=== PATIENT | female | born 1950 | race Caucasian/White ===

== ENCOUNTER → 2017-11-11 | Outpatient (CLI) | payer MEDICARE, OTHER ==
--- NOTE | 2017-11-11 12:51 | MRI ---
EXAM DESCRIPTION: MRI left knee CLINICAL HISTORY: Left knee pain and swelling COMPARISON: None. TECHNIQUE: Multiplanar, multisequence MR images of the left knee FINDINGS: Tear of the free edge mid body lateral meniscus with focal fraying and blunting coronal PD image 19. Lateral femorotibial chondrosis with full-thickness chondral defect of the weightbearing femoral condyle about 7 mm in size. Full-thickness fissure of the adjacent tibial cartilage. No subchondral marrow abnormality No medial meniscal tear. Medial femorotibial chondral thinning diffusely without subchondral marrow edema Minimal lateral patellar positioning relative to the trochlea by about 4 mm with mild lateral patellar tilt. TT TG interval estimated at 13 mm. Grade 4 chondrosis over the lower half of the lateral facet patella with multifocal tiny subchondral cysts and mild edema. Femoral trochlear cartilage intact. Patellar and quadriceps tendons are intact ACL, PCL, MCL and fibular collateral ligaments are intact Biceps femoris, popliteus and iliotibial band tendons are normal. Normal tendons of the posterior medial knee Prepatellar subcutaneous soft tissue edema and swelling mostly overlying the patella and lateral retinaculum. Edema in the infrapatellar fat superior lateral. Minimal joint fluid without focal synovitis or intra-articular body IMPRESSION: Radial free edge tear mid body lateral meniscus. Chondrosis lateral femorotibial with a 7 mm full-thickness chondral defect of the femoral condyle and a full-thickness subjacent tibial chondral fissure Grade 4 chondrosis involving the lower half of the lateral patella with subchondral cystic change and edema Electronically signed by: Yahir Boswell MD 11/11/2017 12:50 PM CDT
== END ==
LOC: MRI 10:04
PROVIDERS: ATTEND Family Medicine
DX: S83.281A Other tear of lateral meniscus, current injury, right knee, initial encounter (principal); M94.8X6 Other specified disorders of cartilage, lower leg

== ENCOUNTER → 2017-11-17 | Outpatient (CLI) | payer MEDICARE, OTHER ==
--- NOTE | 2017-11-17 11:11 | RAD ---
EXAM DESCRIPTION: Pelvis CLINICAL HISTORY: 67 years Female, PAIN IN LEFT HIP COMPARISON: None. FINDINGS: Single AP view the pelvis shows no displaced left hip or other pelvic fracture. Hip joint spaces are fairly well-maintained. The sacroiliac joints are unremarkable. No soft tissue abnormality. IMPRESSION: Negative exam. No apparent pelvic abnormality to explain left hip pain. Electronically signed by: Wesley Martinez MD 11/17/2017 11:10 AM CDT
== END ==
LOC: RAD 10:06
PROVIDERS: ATTEND Orthopaedic Surgery
DX: M25.552 Pain in left hip (principal)

== ENCOUNTER → 2018-04-20 | Outpatient (CLI) | payer MEDICARE, OTHER | LOC: GMAM 17:29 | PROVIDERS: ATTEND Family Medicine | DX: L29.8 Other pruritus (principal); L20.89 Other atopic dermatitis; R53.83 Other fatigue ==

== ENCOUNTER 2019-02-19 00:43 | Observation (INO) | payer MEDICARE, OTHER ==
--- NOTE | 2019-02-19 01:04 | ED.PDOC ---
History of Present Illness - General Chief Complaint: Chest Pain/RI Stated Complaint: chest pain Time Seen by Provider: 02/19/19 00:55 - History of Present Illness Initial Comments: c/o having 7/10 sharp /burning epigastric and substernal chest pain started 3 hours back radiating to the back , no sob or wheezing. Pt says that it is a similar pain when she was diagnosed with CAD and stent was placed Timing/Duration: 1-3 hours Location: substernal Activities at Onset: none Improving Factors: nothing Worsening Factors: nothing Allergies/Adverse Reactions: Allergies NO KNOWN ALLERGY Allergy (Verified 02/19/19 00:50) Home Medications: Ambulatory Orders Atorvastatin Calcium 40 mg PO BEDTIME 02/19/19 Januvia 100 mg PO DAILY 02/19/19 RX: Insulin Glargine [Basaglar Kwikpen] 12 units SC BEDTIME 02/19/19 RX: Lisinopril [Prinivil] 10 mg PO BID 02/19/19 RX: Paroxetine HCl 10 mg PO DAILY 02/19/19 RX: Semaglutide [Ozempic] 2 mg SC WKLY 02/19/19 Review of Systems - Review of Systems Constitutional: States: no symptoms reported EENTM: States: no symptoms reported Respiratory: States: no symptoms reported Cardiology: States: see HPI Gastrointestinal/Abdominal: States: no symptoms reported Genitourinary: States: no symptoms reported Musculoskeletal: States: no symptoms reported Skin: States: no symptoms reported Neurological: States: no symptoms reported Endocrine: States: no symptoms reported Hematologic/Lymphatic: States: no symptoms reported Past Medical History (General) - Patient Medical History Hx Cardiac Disorders: Yes Hx Congestive Heart Failure: No Hx Hypertension: Yes Hx Diabetes: Yes Surgical History: Hysterectomy - Vaccination History Hx Influenza Vaccination: No Hx Pneumococcal Vaccination: No - Triage Comment ED Triage Comment: Pain to epiastric area, radiates to back. Onset around 8-9 pm. Also states has heartburn Family Medical History - Family History Father Family History: Unknown Mother Living Status: Age at (years of age): 51 Cause of : type 1 DM Hx Cardiac Disease: Yes Physical Exam - Physical Exam General Appearance: Alert, Comfortable Eyes, Ears, Nose, Throat Exam: normal ENT inspection Neck: non-tender, full range of motion, supple, normal inspection Respiratory: chest non-tender, lungs clear, normal breath sounds, no respiratory distress, no accessory muscle use Cardiovascular/Chest: regular rate, rhythm, no edema, no gallop, no JVD, no murmur Gastrointestinal/Abdominal: soft, no organomegaly Extremity: normal range of motion, non-tender, normal inspection, no pedal edema Neurologic: no motor/sensory deficits, alert, normal mood/affect, oriented x 3 Skin Exam: normal color Lymphatic: no adenopathy Progress - Progress Progress: 02/19/19 04:14 Case d/w Norman agreed to admit the pt Heart Score : 5 02/19/19 04:18 - Results/Orders Results/Orders: 02/19/19 00:50 Telemetry .ONCE EKG Assessment ONCE EKG Stat Pulse Ox Stat Pulse Oximetry Assessment DAILY Laboratory Results WBC 10.1 K/mm3 (4.8-10.8) 02/19/19 01:02 RBC 4.25 M/mm3 (4.20-5.40) 02/19/19 01:02 Hgb 13.1 gm/dL (12.0-16.0) 02/19/19 01:02 Hct 38.6 % (36.0-47.0) 02/19/19 01:02 MCV 90.7 fl (81.0-99.0) 02/19/19 01:02 MCH 30.7 pg (27.0-31.0) 02/19/19 01:02 MCHC 33.9 g/dL (33.0-37.0) 02/19/19 01:02 RDW 13.2 % (11.5-14.5) 02/19/19 01:02 Plt Count 316 K/mm3 (130-400) 02/19/19 01:02 MPV 7.7 fl (7.40-10.4) 02/19/19 01:02 Absolute Neuts (auto) 6.00 K/uL (1.8-6.8) 02/19/19 01:02 Absolute Lymphs (auto) 3.00 K/uL (1.0-3.4) 02/19/19 01:02 Absolute Monos (auto) 0.80 K/uL (0.2-0.8) 02/19/19 01:02 Absolute Eos (auto) 0.20 K/uL (0.0-0.4) 02/19/19 01:02 Absolute Basos (auto) 0.00 K/uL (0.0-0.1) 02/19/19 01:02 Neutrophils % 59.9 % (42.0-78.0) 02/19/19 01:02 Lymphocytes % 29.6 % (20.0-50.0) 02/19/19 01:02 Monocytes % 7.8 % (2.0-9.0) 02/19/19 01:02 Eosinophils % 2.2 % (1.0-5.0) 02/19/19 01:02 Basophils % 0.5 % (0.0-2.0) 02/19/19 01:02 PT 9.2 SECONDS (9.0-10.9) 02/19/19 01:02 INR 0.92 (0.9-1.15) 02/19/19 01:02 PTT (SP) 24.5 SECONDS (21.8-31.6) 02/19/19 01:02 D-Dimer, Quantitative 0.59 mg/L FEU (0-0.49) H* 02/19/19 01:02 Sodium 140 mmol/L (135-145) 02/19/19 01:02 Potassium 3.5 mmol/L (3.6-5.0) L 02/19/19 01:02 Chloride 100 mmol/L (101-111) L 02/19/19 01:02 Carbon Dioxide 32 mmol/L (21-31) H 02/19/19 01:02 Anion Gap 11.5 (12-18) L 02/19/19 01:02 BUN 16 mg/dL (7-18) 02/19/19 01:02 Creatinine 0.92 mg/dL (0.6-1.3) 02/19/19 01:02 BUN/Creatinine Ratio 17.4 (10-20) 02/19/19 01:02 Random Glucose 225 mg/dL (70-105) H 02/19/19 01:02 Serum Osmolality 287.6 mOsm/L (275-295) 02/19/19 01:02 Calcium 9.8 mg/dL (8.4-10.2) 02/19/19 01:02 Magnesium 1.9 mg/dL (1.8-2.5) 02/19/19 01:02 Total Bilirubin 0.4 mg/dL (0.2-1.0) 02/19/19 01:02 Direct Bilirubin < 0.1 mg/dL (0-0.2) 02/19/19 01:02 Indirect Bilirubin 0.3 mg/dL (0.2-0.8) 02/19/19 01:02 AST 19 IU/L (10-42) 02/19/19 01:02 ALT 31 IU/L (10-60) 02/19/19 01:02 Alkaline Phosphatase 83 IU/L (42-121) 02/19/19 01:02 Creatine Kinase 56 IU/L (26-140) 02/19/19 01:02 CK-MB (CK-2) 1.0 ng/mL (0.0-4.4) 02/19/19 01:02 CK-MB (CK-2) % Not Reportable 02/19/19 01:02 Troponin I < 0.02 ng/mL (0.01-0.05) 02/19/19 03:19 B-Natriuretic Peptide < 5.0 pg/ml (0-100) 02/19/19 01:02 Serum Total Protein 7.8 gm/dL (6.4-8.2) 02/19/19 01:02 Albumin 4.3 g/dl (3.2-5.5) 02/19/19 01:02 - EKG/XRAY/CT EKG: Sinus, no ST T wave changes Departure - Departure Clinical Impression: Chest pain Disposition: Admit Patient Condition: Good Home Medications: Ambulatory Orders Atorvastatin Calcium 40 mg PO BEDTIME 02/19/19 Januvia 100 mg PO DAILY 02/19/19 RX: Insulin Glargine [Basaglar Kwikpen] 12 units SC BEDTIME 02/19/19 RX: Lisinopril [Prinivil] 10 mg PO BID 02/19/19 RX: Paroxetine HCl 10 mg PO DAILY 02/19/19 RX: Semaglutide [Ozempic] 2 mg SC WKLY 02/19/19
--- NOTE | 2019-02-19 01:15 | RAD ---
CLINICAL HISTORY: chest pain COMPARISON: None. 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 Lungs are clear without consolidation, atelectasis, mass or edema. There is no pleural effusion. There is no pneumothorax. There are no acute osseous findings. IMPRESSION: Clear lungs. Electronically signed by: Jw Elder MD 02/19/2019 1:13 AM CORNER BRACE BLOCK MACHINE OPERATOR
[2019-02-19] MEDS ORDERED: ALUM & MAG HYDROX-SIMETHICONE 30 ML, LIDOCAINE VISCOUS 2% 15 ML PO ONE ×2 (02:16)
[2019-02-19] MEDS ORDERED: LIDOCAINE HCL 2% (MOUTH-THROAT) 15 ML UD ONE (02:17)
[2019-02-19] MEDS ORDERED: ALUM & MAG HYDROX-SIMETHICONE 30 ML UD ONE (02:17)
[2019-02-19] MEDS ORDERED: FAMOTIDINE IV PREMIX 20 MG in PREMIX BAG 1 BAG IVPB ONE (03:16)
[2019-02-19] MEDS ORDERED: DICYCLOMINE HCL INJ 20 MG/2 ML AMP IM ONE (03:17)
[2019-02-19] MEDS ORDERED: FAMOTIDINE IV PREMIX 50 ML IVPB ONE (03:18)
[2019-02-19] MEDS ORDERED: PANTOPRAZOLE SODIUM IV 40 MG VIAL ONE (04:09)
[2019-02-19] MEDS ORDERED: PANTOPRAZOLE SODIUM IV 40 MG VIAL IV ONE (04:09)
[2019-02-19] MEDS ORDERED: SODIUM CHLORIDE 0.9% (FLUSH) 10 ML SYG IV PRN (05:06)
[2019-02-19] MEDS ORDERED: NITROGLYCERIN 0.4 MG 25 EA TAB SL PRN (05:06)
[2019-02-19] MEDS ORDERED: ASPIRIN (CHEWABLE) 81 MG TAB PO ONE (05:06)
[2019-02-19] MEDS ORDERED: MORPHINE SULFATE INJ 10 MG/ML VIAL IV PRN (05:06)
[2019-02-19] MEDS ORDERED: ACETAMINOPHEN 325 MG TAB PO PRN (05:06)
[2019-02-19] MEDS ORDERED: DEXTROSE 50% 25 GM/50 ML SYG IV PRN (05:11)
[2019-02-19] MEDS ORDERED: GLUCAGON INJ 1 MG VIAL SUBCU PRN (05:11)
[2019-02-19] MEDS ORDERED: KCL 20 MEQ/NS 1,000 ML IVS PRN (05:20)
[2019-02-19] MEDS ORDERED: IV SET AND CAP CHANGE INJ INJ SCH (05:30)
[2019-02-19] MEDS ORDERED: ENOXAPARIN SODIUM 80 MG/0.8 ML SYG SUBCU ONE (05:35)
--- NOTE | 2019-02-19 07:28 | CT ---
EXAM: CT Angiography Chest With Intravenous Contrast CLINICAL HISTORY: cp , elevated ddimer TECHNIQUE: Axial computed tomographic angiography images of the chest with intravenous contrast. Sagittal and coronal reformatted images were created and reviewed. This CT exam was performed using one or more of the following dose reduction techniques: automated exposure control, adjustment of the mA and/or kV according to patient size, and/or use of iterative reconstruction technique. MIP reconstructed images were created and reviewed. COMPARISON: No relevant prior studies available. FINDINGS: Limitations: None. Pulmonary arteries: Unremarkable. No pulmonary embolism. Aorta: No acute findings. No thoracic aortic aneurysm. Lungs: There is a slight mosaic pattern of pulmonary perfusion represent areas of air trapping. There are foci of mild vascular crowding/atelectasis. There is a 9 x 11 mm noncalcified pulmonary nodule in the left lower lobe slightly posterior and inferior to the left atrium (81/118 and 161/235). Pleural space: Unremarkable. No significant effusion. No pneumothorax. Heart: Unremarkable. No cardiomegaly. No significant pericardial effusion. No evidence of RV dysfunction. Bones/joints: No acute fracture. No dislocation. Soft tissues: Unremarkable. Lymph nodes: Unremarkable. No enlarged lymph nodes. Gallbladder and bile ducts: Large lamellated gallstone present. IMPRESSION: 1. No pulmonary embolus noted. 2. Nonspecific left lower lobe pulmonary nodule. For low-risk or high-risk patients consider a follow-up chest CT at 3 months. If unchanged consider an additional follow-up CT at 18-24 months. Alternatively (or additionally) PET/CT or tissue sampling could be performed. 3. Cholelithiasis. Electronically signed by: Whitney Tate MD 02/19/2019 7:27 AM CHAIN MAKER HAND
[2019-02-19] MEDS: INSULIN LISPRO 100 UNITS/ML PEN SUBCU SCH ×2 (07:30→11:26)
[2019-02-19] MEDS ORDERED: SODIUM CHLORIDE 0.9% (FLUSH) 10 ML SYG IV SCH (09:00)
[2019-02-19] MEDS ORDERED: NITROGLYCERIN 0.4 MG/HR PATCH TOP SCH (09:00)
[2019-02-19 10:39] VITALS: BP 115/70; TEMP 98; O2SAT 97
--- NOTE | 2019-02-19 11:45 | CT ---
EXAM DESCRIPTION: Abdoment/Pelvis w/o Contrast CLINICAL HISTORY: 68 years Female, epigastric pain, elevated lipase TECHNIQUE: This exam was performed according to our departmental dose-optimization program, which includes automated exposure control, adjustment of the mA and/or kV according to patient size and/or use of iterative reconstruction technique. COMPARISON: Concurrent CT chest FINDINGS: Evaluation limited by lack of intravenous contrast. Bibasilar volume loss. No focal consolidation. Redemonstrated left lower lobe pulmonary nodule measuring 9 mm series 2 image 15 (follow-up recommendations are unchanged from the concurrent chest CT). Steatosis. Cholelithiasis with gallbladder wall thickening and trace pericholecystic fluid. Focal fatty sparing adjacent the gallbladder fossa. The contours of the liver, spleen and adrenal glands are unremarkable normal pancreas. No peripancreatic fat stranding or fluid collection identified. Normal renal contours. No hydronephrosis. No urothelial lesion identified. The bladder is decompressed. Scattered colonic diverticula without focal inflammatory change. No evidence of bowel obstruction. No findings to suggest appendicitis. Normal appendix. Medication injection site over the ventral left lower quadrant. No adenopathy. No focal fluid collection. No free air. Normal caliber abdominal aorta. No acute or suspicious osseous abnormality. Scattered degenerative changes present. IMPRESSION: 1. Findings concerning for acute cholecystitis. 2. No peripancreatic fat stranding or fluid collection identified. 3. Redemonstrated left lower lobe pulmonary nodule, follow-up recommendations are unchanged from the concurrent chest CT. Electronically signed by: Cosmo Gaviria MD 02/19/2019 11:43 AM REMARKETING MANAGER
--- NOTE | 2019-02-19 13:42 | CONS ---
DATE OF CONSULTATION: 02/19/19 HISTORY OF PRESENT ILLNESS: The patient is a 68-year-old female who presented to the Emergency Room with chest pain, rule out myocardial infarction. She also underwent a CTA to rule out pulmonary embolism. She has a history of coronary artery disease and stent placement in the distant past, approximately 2011. She denies shortness of breath. Initially she also stated that even though the pain was somewhat like what she had before, it did radiate straight through to the back. She did not associate it with any specific meal or injury. PAST MEDICAL HISTORY: 1. Childbirth times 3. 2. Tubal ligation. 3. Hysterectomy. 4. Stent placement. MEDICATIONS: 1. Atorvastatin. 2. Glargine insulin. 3. Januvia. 4. Lisinopril. 5. Paroxetine. ALLERGIES: NO KNOWN DRUG ALLERGIES. FAMILY HISTORY: Negative for anesthesia complication. SOCIAL HISTORY: The patient is and lives at home with her . She smoked until she was 32. She does not drink alcohol of any significant amount. PHYSICAL EXAMINATION: GENERAL: The patient is awake, alert, cooperative, in no acute distress. HEENT: Sclerae nonicteric. Mucous membranes moist. NECK: Without adenopathy. BACK: Without CVA tenderness. CHEST: Equal breath sounds bilaterally. HEART: Regular rhythm. ABDOMEN: Soft. There is minimal tenderness in the epigastrium without guarding or mass. There is a well-healed Pfannenstiel incision. PELVIC/RECTAL: Deferred. EXTREMITIES: Without cyanosis, clubbing or edema. LABORATORY: Normal white count, normal hemoglobin of 13.1. Neutrophils 59%. Platelet count 316,000. QT was normal at 9.2 with INR 0.92. D-dimer was slightly elevated at 45.9. Potassium 3.5. BUN 16, creatinine 0.92. Liver functions all within normal limits. Lipase slightly elevated at 65, but it has now normalized to 28. CTA and CT of the abdomen revealed no pathology in the chest. It does reveal gallstones and there is some question of gallbladder wall thickening with pericholecystic inflammatory process. ASSESSMENT: 1. Cholelithiasis. 2. Cholecystitis. 3. Diabetes. 4. She has ruled out for chest pathology. PLAN: The risks, benefits and alternatives to laparoscopic cholecystectomy were discussed with the patient and her . Their questions were answered. They wished to proceed. Since she is an observation patient, she will be discharged home this afternoon, made NPO at midnight and brought in tomorrow in the late morning for elective cholecystectomy. She is to not eat any fatty meals until after her surgery. #[id number] [facility]
--- NOTE | 2019-02-19 14:27 | SSS ---
SUPERVISING PHYSICIAN: Avel Lopez MD CHIEF COMPLAINT: Chest pain, epigastric discomfort. HISTORY OF PRESENT ILLNESS: Ms. Cazares is a 68-year-old female patient who presented to the Emergency Department earlier this morning with complaints of chest pain. She noted that she had had some pain that started shortly after supper last night that was radiating from her epigastric region to her back. She described it as 8/10. She does have a history of previous stent placement with coronary artery disease in 2011. She denied any actual shortness of breath, nausea or vomiting. Her initial labs showed her troponins were negative at 0.02. EKG showed a normal sinus rhythm without any ST changes. Given her past medical history, the Emergency Room physician requested the patient be placed in observation for chest pain rule out. On further workup, further laboratory studies were completed with an elevated lipase at 63. She also had a D-dimer that was elevated at 0.59. Liver functions were all within normal limits. CTA of the chest was completed which was without any acute findings for pulmonary embolism, but did show cholelithiasis. Given her elevated lipase, this was followed up with a CT of the abdomen and pelvis with contrast and per radiologic interpretation, there were findings concerning for acute cholecystitis. She had a normal white count. She was afebrile. She was no longer having any chest pains or any other pains after admission. It was felt that the origin of her pain was due to the acute cholecystitis. At that point, Dr. Garland, general surgeon, was consulted for further evaluation. She was placed in observation in stable condition. PAST MEDICAL HISTORY: 1. Coronary artery disease, followed by Dr. Martini with stent placement in 2011. 2. Hypertension. 3. Osteopenia. 4. Type 2 diabetes mellitus on oral and insulin therapy. 5. Anxiety. PAST SURGICAL HISTORY: 1. Hysterectomy in 1999 with BSO. HOME MEDICATIONS: 1. Paroxetine 10 mg daily. 2. Lisinopril 10 mg b.i.d. 3. Januvia 100 mg b.i.d. 4. Insulin glargine 12 units at bedtime. 5. Atorvastatin calcium 40 mg at bedtime. 6. Ozempic 2 mg weekly. ALLERGIES: NO KNOWN DRUG ALLERGIES. FAMILY HISTORY: Her father had hypertension, kidney disease. Mother at age 51 secondary to complications of insulin dependent diabetes mellitus. 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 She is and has three children. She does have a history of smoking cigarettes, but quit in 1981. She denies any alcohol or illicit drug use. REVIEW OF SYSTEMS: CONSTITUTIONAL: Negative for any fevers, chills or general malaise. HEENT: Negative for headache, sore throats, earaches, nasal congestion, vision changes. RESPIRATORY: Negative for coughing, wheezing or shortness of breath. CARDIOVASCULAR: As noted in history of present illness, epigastric discomfort radiating to her back. GASTROINTESTINAL: Negative for nausea, vomiting, diarrhea, constipation or abdominal pain. GENITOURINARY: Negative for dysuria, hematuria, polyuria. MUSCULOSKELETAL: Negative for joint swelling or arthralgia. SKIN: Negative for lesions, rashes, moles, unexplained changes. NEUROLOGIC: Negative for ataxia, seizures, syncopal episodes, vision changes or other focal deficits. HEMATOLOGIC: Denies easy bleeding or unexplained bruising or transfusion reactions. PHYSICAL EXAMINATION: VITAL SIGNS: Temperature 98. Pulse 76. Blood pressure 115/70. Respirations 16. Saturation 97% on room air. Admission weight 81.4 kg. GENERAL: The patient was resting comfortably and appeared to be in no acute distress. She is alert. HEENT: Tympanic membranes clear bilaterally. Oropharynx is pink, moist without any lesions. NECK: Supple, nontender with full range of motion. No jugular venous distention noted. RESPIRATORY: Lungs clear to auscultation bilaterally without any rhonchi, wheezes or rales. CARDIOVASCULAR: Regular rate and rhythm without any appreciable murmurs, gallops, or rubs. ABDOMEN: Soft with some tenderness noted in the epigastric region without guarding, masses. Positive bowel sounds. EXTREMITIES: There is no edema. NEUROLOGIC: The patient is alert and oriented times three. Cranial nerves II- XII are grossly intact. LABORATORY: CBC showed normal white count, hemoglobin 13.1, no left shift, platelet count 316,000. D-dimer slightly elevated at 45.9. Electrolytes showed normal potassium, creatinine 0.92. Liver functions within normal limits. Lipase initially was elevated, but normalized after fluids and was 28 prior to discharge. RADIOLOGY: CTA of the chest to rule out pulmonary embolism was without any acute findings other than cholelithiasis. No pulmonary embolism was identified. She did have CT of the abdomen and pelvis with contrast which did reveal gallstones and some concerning findings for acute cholecystitis with some question of thickening of the pericholecystic inflammatory process. Echocardiogram was pending at time of discharge. HOSPITAL COURSE: Ms. Cazares was admitted for chest pain rule out. She was to have no acute cardiac findings. She had no return of her chest pain. She had resolution of her pain prior to admission. She was further worked up and found to have signs for acute cholecystitis but without any signs of infection. Dr. Garland was consulted and recommended the patient have a cholecystectomy laparoscopically in the morning. After discussion with the patient, it was agreed that the patient would be discharged this afternoon, kept NPO overnight and brought in in the morning for an elective cholecystectomy. She was instructed not to eat any fatty meals and remain NPO after midnight. Her EKG showed no acute changes. Her labs did show an elevated lipase, but normalized after fluids. She had no concerning symptoms and was found to be clinically stable enough to discharge to followup as noted. ADMISSION DIAGNOSIS: 1. Chest pain, rule out. 2. Type 2 diabetes mellitus on oral and insulin therapy. 3. Coronary artery disease, followed by Dr. Martini with stent placement in 2011. 4. Hypertension, controlled. 5. Osteopenia. 6. Anxiety. DISCHARGE DIAGNOSIS: 1. Cholelithiasis with acute cholecystitis. 2. Hypertension, controlled. 3. Coronary artery disease with stent placement in 2011, followed by Dr. Martini. 4. Type 2 diabetes mellitus, controlled with insulin and oral therapy. 5. Anxiety. PLAN: Ms. Cazares, after seeing Dr. Garland, is going to be discharged home to return in the morning for an elective cholecystectomy. She was instructed on diet and to be NPO at midnight. Activity as tolerated. Return to the hospital in the morning for cholecystectomy. She was told if she had any worsening symptoms after discharge to call Dr. Garland and return to the hospital for further evaluation. CONDITION ON DISCHARGE: Stable and improved. DISPOSITION: The patient was discharged home to care of family members. [facility][id number] [facility]
[2019-02-19] MEDS ORDERED: REMOVE OLD PATCH TOP SCH (21:00)
[2019-02-19] MEDS ORDERED: ENOXAPARIN SODIUM 80 MG/0.8 ML SYG SUBCU SCH (21:00)
[2019-02-20] MEDS ORDERED: ASPIRIN TABLET 325 MG TAB PO SCH (09:00)
== END 2019-02-19 14:27 | disposition home or self-care (01) ==
LOC: ER 00:43 → MS 04:33
PROVIDERS: ADMIT Nurse Practitioner Family; ATTEND Nurse Practitioner Family
DX: K80.00 Calculus of gallbladder with acute cholecystitis without obstruction (principal); I10 Essential (primary) hypertension; I25.10 Atherosclerotic heart disease of native coronary artery without angina pectoris; E11.9 Type 2 diabetes mellitus without complications; F41.9 Anxiety disorder, unspecified; R07.2 Precordial pain; M85.88 Other specified disorders of bone density and structure, other site; R91.1 Solitary pulmonary nodule; I34.0 Nonrheumatic mitral (valve) insufficiency; I36.1 Nonrheumatic tricuspid (valve) insufficiency; Z79.4 Long term (current) use of insulin; Z79.899 Other long term (current) drug therapy; Z95.5 Presence of coronary angioplasty implant and graft; Z87.891 Personal history of nicotine dependence; Z82.49 Family history of ischemic heart disease and other diseases of the circulatory system; Z83.3 Family history of diabetes mellitus; Z84.1 Family history of disorders of kidney and ureter
CPT/HCPCS: 96365; 96375; 96372; J0500; J3490; J1650; J3480; J1815; 85379; 82948 ×2; 36415 ×2; 82550; 80048; 82553; 85025; 85730; 85610; 84484 ×3; 82150; 80076; 83690 ×2; 83880; 36416 ×2; 71045; 71275; 74176; 94760 ×2; 99285; 93306; 93005 ×2; G0378

== ENCOUNTER 2019-02-20 05:34 | Day surgery (SDC) | payer MEDICARE, OTHER ==
[2019-02-20] MEDS ORDERED: PROPOFOL 200 MG/20 ML VIAL IV ONE (10:00)
[2019-02-20] MEDS ORDERED: raNITIdine HCL INJ 25 MG/ML VIAL IV ONE (10:00)
[2019-02-20] MEDS ORDERED: DEXAMETHASONE INJ 10 MG/ML VIAL IV ONE (10:00)
[2019-02-20] MEDS ORDERED: KETOROLAC TROMETHAMINE INJ 30 MG/ML VIAL IV ONE (10:00)
[2019-02-20] MEDS ORDERED: SODIUM CHL 0.9% 100ML MINI-BAG 100 ML IVPB ONE (12:29)
[2019-02-20] MEDS ORDERED: LACTATED RINGERS 1,000 ML ONE (12:29)
[2019-02-20] MEDS ORDERED: ceFAZolin SODIUM 1 GM VIAL ONE (12:30)
[2019-02-20] MEDS ORDERED: fentaNYL CITRATE INJ 50 MCG/ML AMP ONE (12:57)
[2019-02-20] MEDS ORDERED: ROCURONIUM BROMIDE 10 MG/ML VIAL ONE (12:57)
[2019-02-20] MEDS ORDERED: MIDAZOLAM INJ 2 MG/2 ML VIAL ONE (12:58)
[2019-02-20] MEDS ORDERED: BUPIVACAINE 0.25% W/EPI 50 ML VIAL INJ ONE (13:05)
[2019-02-20] MEDS ORDERED: HEPARIN SODIUM (PORCINE) 10,000 UNITS/ML VIAL ONE (13:05)
[2019-02-20] MEDS ORDERED: SUGAMMADEX SODIUM 200 MG/2 ML VIAL IV ONE (14:08)
[2019-02-20] MEDS ORDERED: HYDROmorphone HCL INJ 2 MG/ML VIAL ONE (14:08)
[2019-02-20] MEDS ORDERED: LACTATED RINGERS 1,000 ML IVS ONE ×2 (15:54)
[2019-02-20 16:53] VITALS: BP 159/81; TEMP 96.8; O2SAT 96
--- NOTE | 2019-02-20 20:59 | OP ---
DATE OF PROCEDURE: 02/20/19 PREOPERATIVE DIAGNOSIS: 1. Cholelithiasis. 2. Cholecystitis. POSTOPERATIVE DIAGNOSIS: 1. Cholelithiasis, pending pathology report. 2. Cholecystitis, pending pathology report. SURGICAL PROCEDURE: 1. Laparoscopic cholecystectomy with intraoperative cholangiography using fluoroscopy. SURGEON: Sadi Garland M.D. DIE CAST TECHNICIAN: None. ANESTHESIA: Local infiltration with 0.25% Marcaine equal epinephrine and general endotracheal anesthesia. INDICATION FOR SURGERY: The patient is a 68 year-old female who presented to the Emergency Room the night before last after eating a meal with what she described as chest pain that radiated to the back. She was admitted for observation for rule out and she did, in fact, rule out, however a CTA of the chest to rule out pulmonary embolism revealed gallstones and a CT of the abdomen was consistent with some inflammatory process around the gallbladder. She did not meet criteria. She was afebrile with a normal white count, so she was discharged home yesterday afternoon and was brought in today for laparoscopic cholecystectomy. FINDINGS AT TIME OF PROCEDURE: The gallbladder wall was thickened. There was a large stone with some inflammatory changes with adhesions to both the duodenum and the omentum. The cystic duct was quite short and intraoperative cholangiography revealed no dilation of the bile duct, free flow into the duodenum and all three branches of the hepatic duct were identified and no leak or stricture was identified. No filling defect was identified. DESCRIPTION OF PROCEDURE: After adequate general endotracheal anesthesia was obtained, the patient was prepped and draped in the usual sterile manner. She had received IV Ancef. Surgical time-out was taken. The infraumbilical area was infiltrated with local anesthesia. A curvilinear incision was made and carried down through the subcutaneous tissue to the midline fascia using blunt dissection. Traction sutures were placed on either side of the midline. A small incision was made in the midline fascia and then with some significant difficulty due to some adhesions, eventually the peritoneum was opened under direct vision and the port was introduced. CO2 was then insufflated until a pressure of 12 mmHg was reached and the abdomen was tympanitic in all four quadrants. When this was done, the laparoscope was introduced in the pelvis. There were adhesions in the pelvis especially on the right side and there were adhesions to the gallbladder, so at this point the patient was placed in reverse Trendelenburg position and turned to the left side. The upper abdominal ports were placed under direct vision. The gallbladder was grasped, and using blunt dissection the adhesions were taken down. The gallbladder was then grasped, retracted anteriorly and laterally. The neck of the gallbladder was identified after gentle blunt dissection of some adhesions. It was then retracted laterally. Eventually the cystic duct was identified and seemed to be quite short. It was clipped proximally. A small incision was made in the cystic duct. The cholangiogram catheter was introduced through a separate stab wound on the right upper quadrant, introduced into the cystic duct and clipped in place. Cholangiograms were taken using fluoroscopy which revealed free flow into the duodenum with no filling defects or strictures noted as noted previously. The cystic duct catheter was removed. The cystic duct was hemoclipped three times distally and divided between the hemoclips. The cystic artery was identified, isolated and clipped twice proximally and once distally and then divided. When this was done, the gallbladder was dissected free from the gallbladder bed of the liver using electrocautery. It was quite large. At this point it was placed in an EndoCatch bag, brought to the opening at the infraumbilical area. The bag was then opened and the gallbladder was opened by crushing the large gallstones. It was removed piecemeal and then sent for pathological evaluation. At this point, port was replaced. The laparoscope was reintroduced. The subhepatic space was inspected along with the lizbet hepatis. There was no bile leak and no bleeding identified, except a small amount of oozing in the gallbladder bed of the liver which was easily controlled with electrocautery. When this was done, the subhepatic space and subphrenic space were irrigated copiously with saline. The effluent was noted to be clear. At this point, the upper abdominal ports were removed under direct vision and good hemostasis was noted. At this point, the CO2, the laparoscope and the infraumbilical port were removed. The infraumbilical port site fascia was approximated with a single [id number] suture of 0 Vicryl. Subcutaneous tissue was irrigated with saline. Skin edges were approximated with 4-0 Vicryl subcuticular sutures, benzoin and Steri-Strips. Sterile dressings were applied. The patient was awakened and taken to the Recovery Room in good and stable condition. Estimated blood loss was less than 50 mL. All sponge, needle and instrument counts were correct. #[id number] [facility]
--- NOTE | 2019-02-21 10:22 | RAD ---
EXAM DESCRIPTION: Fluoroscopy Up to 1Hr CLINICAL HISTORY: 68 years Female, IOC TECHNIQUE: Intraoperative fluoroscopy was performed for intraoperative cholangiogram. FINDINGS: A total of 2 provided images demonstrate good contrast opacification of the intrahepatic and extrahepatic biliary system with contrast noted in the second portion of the duodenum.. Fluoroscopy time: 19.5 secs Dose: 4.07 mGy IMPRESSION: Intraoperative fluoroscopy was performed for intraoperative cholangiogram. Electronically signed by: Angela Chavez MD 02/21/2019 10:20 AM [facility]
== END 2019-02-20 18:00 | disposition home or self-care (01) ==
LOC: AMB 05:34
PROVIDERS: ATTEND Surgery
DX: K80.10 Calculus of gallbladder with chronic cholecystitis without obstruction (principal); K82.8 Other specified diseases of gallbladder; E11.9 Type 2 diabetes mellitus without complications; I25.10 Atherosclerotic heart disease of native coronary artery without angina pectoris; Z95.5 Presence of coronary angioplasty implant and graft; Z90.710 Acquired absence of both cervix and uterus; Z87.891 Personal history of nicotine dependence; Z79.4 Long term (current) use of insulin; Z79.899 Other long term (current) drug therapy
CPT/HCPCS: 00790; 36416; 47563; 76000; 82948; 88304; J0690; J1100; J1170; J1644; J1885; J2250; J2780; J3010; J3490; J7050; J7120

== ENCOUNTER → 2019-04-06 | Outpatient (CLI) | payer MEDICARE, OTHER ==
--- NOTE | 2019-04-10 16:57 | MAM ---
EXAM DESCRIPTION: 3D Screening BILATERAL : Digital Mammography. CLINICAL HISTORY: 69 years Female screening . No complaints. No personal or family history of breast cancer. Menarche age 14. Childbirth age 21. Menopause age 49. No HRT.. Lifetime risk of developing breast cancer (Tyrer-Cuzick model)(%): 4.2. COMPARISON: Bilateral 2-D digital screening mammography October 2011.. TECHNIQUE: Bilateral CC and MLO projection full-field images, digital tomosynthesis mammographic technique. Bilateral digital 2-D full-field MLO images. CAD available for 2-D images. FINDINGS: The breast parenchymal density pattern is: Heterogeneously dense breast tissue, which may obscure small masses. No skin thickening or nipple retraction. Multiple heterogeneous calcifications bilaterally associated with dense fibroglandular tissues. Secretory calcifications also bilaterally. Bilateral skin mole markers. More heterogeneous and possibly dystrophic calcifications in the upper outer quadrant of the anterior third of the left breast with an approximately 3 cm of the nipple.. No new focal, stellate mass or density, focal asymmetry , and no suspicious microcalcifications right breast. IMPRESSION: BI-RADS CATEGORY: 0 - INCOMPLETE- Need additional imaging evaluation. FOLLOW-UP: Recall for additional imaging: Bilateral breast full-field LM 2-D and tomosynthesis images. Full-field left breast CC 2-D image. Spot magnification 2-D images of the anterior left breast CC and LM projections. Optional targeted left breast ultrasound depending on diagnostic imaging findings.. Written communication concerning the IMPRESSION and Follow-up, will be mailed to the patient and referring health care provider. Electronically signed by: Teto Echeverria MD 04/10/2019 4:56 PM REDRYING MACHINE OPERATOR
== END ==
LOC: MAMMO 15:00
PROVIDERS: ATTEND Family Medicine
DX: Z12.31 Encounter for screening mammogram for malignant neoplasm of breast (principal)

== ENCOUNTER → 2019-05-07 | Outpatient (CLI) | payer MEDICARE, OTHER ==
--- NOTE | 2019-05-07 17:10 | US ---
EXAM DESCRIPTION: Diagnostic Mammo,Bilateral (accession [id number]), Breast,Left (accession [id number]): Ultrasound CLINICAL HISTORY: 69 yearsFemaleABNORMAL SCREENING bilateral breast microcalcifications. Lifetime risk of developing breast cancer (Tyrer-Cuzick model)(%): 4.2. COMPARISON: Bilateral screening digital breast tomosynthesis 06 April. TECHNIQUE: Bilateral LM projection full-field images, digital tomosynthesis technique. Bilateral 2-D digital full-field images: CC and LM projections. CC and LM Spot magnification digital 2-D images anterior left breast. Bilateral skin mole markers are noted at. CAD available for 2-D images.. Transcutaneous scanning of the anterior left breast utilizing carney-scale and Doppler modes. Scanning performed by the alarm signal operator and Dr. Echeverria. FINDINGS: The breast parenchymal density pattern is: Heterogeneously dense breast tissue, which may obscure small masses. Bilateral heterogeneous microcalcifications scattered throughout the dense fibroglandular tissues. No abnormal groups. Bilateral skin mole markers. Focal asymmetry in the left breast periareolar tissues upper outer quadrant, lower outer quadrant, and lower inner quadrant. No suspicious microcalcifications bilaterally. Ultrasound: Scanning of the upper outer quadrant, lower outer quadrant, and lower inner quadrant of the tissue abutting the left nipple. Mostly fibroglandular tissues and variable caliber of the ducts. No distinct cyst, no dominant solid mass, no large calcifications. IMPRESSION: Benign exam. BIRAD CATEGORY: 2 BENIGN FINDINGS. RECOMMENDATIONS: FOLLOW UP: Routine digital bilateral mammographic screening, one year interval from March 2018. Written communication explaining the IMPRESSION and follow-up, will be mailed to the patient and referring health care provider. The FINDINGS and the FOLLOW-UP plan were reviewed in person with the patient after the examination. According to the [employer], yearly mammograms are recommended starting at age 40 and continuing as long as a woman is in good health. Any breast change noted on a breast self-exam should be reported promptly to the patient's healthcare provider. Breast MRI is recommended for women with an approximately 20-25% or greater lifetime risk of breast cancer, including women with a strong family history of breast or ovarian cancer and women who have been treated for Hodgkin's disease. A negative mammographic report should not delay tissue diagnosis in patients with significant clinical history or physical findings. Extremely dense breast tissue limits the sensitivity of digital mammography. Electronically signed by: Teto Echeverria MD 05/07/2019 5:09 PM [facility]
== END ==
LOC: MAMMO 10:55
PROVIDERS: ATTEND Family Medicine
DX: R92.8 Other abnormal and inconclusive findings on diagnostic imaging of breast (principal); I10 Essential (primary) hypertension; E83.42 Hypomagnesemia

== ENCOUNTER → 2020-01-30 | Outpatient (CLI) | payer MEDICARE, OTHER | LOC: GMAM 15:05 | PROVIDERS: ATTEND Family Medicine | DX: U07.1 COVID-19 (principal); R71.8 Other abnormality of red blood cells; R09.02 Hypoxemia ==

== ENCOUNTER → 2020-01-31 | Outpatient (CLI) | payer MEDICARE, OTHER ==
--- NOTE | 2020-02-01 09:42 | CT ---
EXAM DESCRIPTION: CTA Chest CLINICAL HISTORY: COVID COMPARISON: February 19, 2019 TECHNIQUE: Postcontrast CT images of the chest are obtained using pulmonary embolism imaging protocol. Three-D MIP reconstructed images of the arterial vasculature are obtained. Coronal and sagittal reconstructed images of the also provided. This exam was performed according to our departmental dose-optimization program, which includes automated exposure control, adjustment of the mA and/or kV according to patient size and/or use of iterative reconstruction technique . FINDINGS: The heart shows calcifications of the coronary arteries. Scattered calcified and noncalcified plaque of the thoracic aorta and left subclavian artery without aneurysmal dilatation or dissection. No filling defects or emboli are seen in the pulmonary arteries. No pathologically enlarged mediastinal, hilar, or axillary lymphadenopathy. No pleural or pericardial effusion. Liver is enlarged with heterogeneous decreased attenuation compatible with diffuse fatty infiltration. Lungs are hypoaerated, but improved from previous. Mild areas of groundglass attenuation in the lungs bilaterally are improved compared to previous exam with improvement of the interstitial thickening seen on previous exam. No consolidation. No significant bronchiectasis or bronchial wall thickening. Osseous structures show mild spondylitic changes of the thoracic spine. No aggressive bony lesions are seen. IMPRESSION: Mild patchy areas of groundglass attenuation in the lungs bilaterally are improved when compared to previous exam. Imaging features can be seen with COVID-19 pneumonia, though are nonspecific and can occur with a variety of infectious and noninfectious processes. These findings were seen on previous examination and are improved suggesting chronic changes. Increased fatty infiltration of the liver is seen. Mild atherosclerotic disease. [PneInd] Electronically signed by: Hardy Cleary MD 02/01/2020 9:40 AM PERFORMANCE IMPROVEMENT MANAGER
== END ==
LOC: CT 10:17
PROVIDERS: ATTEND Family Medicine
DX: U07.1 COVID-19 (principal); I70.90 Unspecified atherosclerosis; K76.0 Fatty (change of) liver, not elsewhere classified

== ENCOUNTER → 2020-02-01 | Outpatient (CLI) | payer MEDICARE, OTHER | LOC: GMAM 14:56 | PROVIDERS: ATTEND Family Medicine | DX: U07.1 COVID-19 (principal); R71.8 Other abnormality of red blood cells; R09.02 Hypoxemia ==

== ENCOUNTER 2020-02-07 15:40 | Emergency (ER) | payer MEDICARE, OTHER ==
[2020-02-07 16:07] VITALS: TEMP 97.6
--- NOTE | 2020-02-07 16:41 | RAD ---
EXAM DESCRIPTION: Chest,1 View CLINICAL HISTORY: 69 years Female, covid sob COMPARISON: Previous chest x-ray February 19, 2019, previous CTA chest January 31, 2020 TECHNIQUE: AP portable chest. FINDINGS: Heart size is prominent with normal pulmonary vascularity. Calcified aortic arch. Subtle increased density in the lingular region may be mild infiltrate. On the CT angiogram January 31, 2020, hazy groundglass density was seen in the lingula and in both lower lobes. Pulmonary nodules seen on the previous CT is not identified on the x-ray study. No pneumothorax or pleural effusion. Bones are unremarkable. IMPRESSION: Subtle lingular infiltrate. Prominent heart without congestive failure. Electronically signed by: Av Austin MD 02/07/2020 4:39 PM BINDER OPERATOR
[2020-02-07] MEDS ORDERED: AMOXICILLIN & POT CLAVULANATE 875 MG TAB PO ONE (16:45)
--- NOTE | 2020-02-07 16:52 | ED.PDOC ---
History of Present Illness - General Chief Complaint: Fever Time Seen by Provider: 02/07/20 15:49 Source: patient Exam Limitations: no limitations - History of Present Illness Initial Comments: The patient is a 69-year-old female presented emergency room secondary to a feeling of more shortness of breath today. She has had a continuously mildly productive cough for the last 5 or 6 days. She was a known coronavirus patient has already completed the course of oral steroids and oral azithromycin. She is not hypoxic. She is not in respiratory distress. She is not febrile. Lung mccormack are actually clear. No syncope or near syncope. No chest pain. Timing/Duration: 24 hours Severity: mild Improving Factors: nothing Worsening Factors: nothing Associated Symptoms: cough, shortness of breath Allergies/Adverse Reactions: Allergies NO KNOWN ALLERGY Allergy (Verified 02/19/19 00:50) Home Medications: Ambulatory Orders Atorvastatin Calcium 40 mg PO BEDTIME 02/19/19 Insulin Glargine [Basaglar Kwikpen] 12 units SC BEDTIME 02/19/19 Januvia 100 mg PO DAILY 02/19/19 Lisinopril [Prinivil] 10 mg PO BID 02/19/19 Paroxetine HCl [Paroxetine Hydrochloride] 10 mg PO DAILY 02/19/19 Semaglutide [Ozempic] 2 mg SC WKLY 02/19/19 Amoxicillin & Pot Clavulanate [Augmentin Tab] 875 mg PO BID #14 tab 02/07/20 predniSONE [Prednisone] 20 mg PO DAILY #5 tab 02/07/20 Review of Systems - Review of Systems Constitutional: States: malaise EENTM: States: no symptoms reported Respiratory: States: cough, short of breath - Mild Cardiology: States: no symptoms reported Gastrointestinal/Abdominal: States: no symptoms reported Genitourinary: States: no symptoms reported Musculoskeletal: States: no symptoms reported Skin: States: no symptoms reported Neurological: States: no symptoms reported Endocrine: States: no symptoms reported All other Systems: No Change from Baseline Past Medical History (General) - Patient Medical History Hx Seizures: No Hx Stroke: No Hx Dementia: No Hx Asthma: No Hx of COPD: No Hx Cardiac Disorders: Yes - Stint Hx Congestive Heart Failure: No Hx Pacemaker: No Hx Hypertension: Yes Hx Thyroid Disease: No Hx Diabetes: Yes Hx Gastroesophageal Reflux: Yes Hx Renal Disease: No Hx Cancer: No Hx of HIV: No Hx Hepatitis C: No Hx MRSA: No Surgical History: cholecystectomy, Hysterectomy - Vaccination History Hx Tetanus, Diphtheria Vaccination: No Hx Influenza Vaccination: No Hx Pneumococcal Vaccination: No - Social History Hx Tobacco Use: No Hx Chewing Tobacco Use: No Hx Alcohol Use: No Hx Substance Use: No Hx Substance Use Treatment: No Hx Depression: No Feels Threatened In Home Enviroment: No Feels Threatened In a Relationship: No Hx Physical Abuse: No Hx Emotional Abuse: No Hx Suspected Abuse: No - Female History Patient is a Female of Child Bearing Age (10 -59 yrs old): No - Triage Comment ED Triage Comment: The patient ambulated from the waiting room to the Trauma room in the ER. She did not apper in distress but complained of fatigue, shortness of breath, cough and chest pressure. She denied nausea and diarrhea and had no other noted complaints during assessment. Family Medical History - Family History Father Family History: Unknown Age (years): 85 Living Status: Still Living Hx Cardiac Disease: Yes Hx Family;Other: kidney issues, and emphysema Mother Living Status: Age at (years of age): 51 Cause of : type 1 DM Hx Cardiac Disease: Yes Physical Exam - Physical Exam General Appearance: Alert, Comfortable, No apparent distress Eye Exam: bilateral normal Ears, Nose, Throat: hearing grossly normal, normal pharynx Neck: full range of motion, supple Respiratory: normal breath sounds, no respiratory distress, no accessory muscle use, respiratory distress Cardiovascular/Chest: normal peripheral pulses, regular rate, rhythm, no edema Peripheral Pulses: radial,right: 2+, radial,left: 2+ Gastrointestinal/Abdominal: non tender, soft Rectal Exam: deferred Back Exam: no CVA tenderness, no vertebral tenderness Extremity: normal range of motion, non-tender, normal inspection, no pedal edema, normal capillary refill Neurologic: healthcare interpreter II-XII nml as tested, alert, normal mood/affect, oriented x 3 Skin Exam: normal color Comments: Vital Signs - 24 hr 02/07/20 15:59 Temperature 97.6 F Pulse Rate [ 98 H Pulse Ox] Respiratory 16 Rate Blood Pressure 166/87 [Left Arm] O2 Sat by Pulse 95 Oximetry Progress - Progress Progress: 02/07/20 16:52 The patient is a 69-year-old female presented emergency room secondary to worsening shortness of breath today. She is not hypoxic and not in respiratory distress. X-ray shows a small lingular pneumonia. Laboratory work is reassuring. I plan to place the patient on 5 days of low-dose prednisone as well as Augmentin. She can follow-up with her primary care doctor. ER warnings were given for any significant worsening. chad nuno [phone] - Results/Orders Results/Orders: Chest x-ray shows a possible lingular infiltrate. EKG shows normal sinus rhythm at 96 bpm normal axis. Normal R wave progression. No ST segment or T wave changes indicative of acute ischemia. Mild left atrial dilation. Laboratory Tests 02/07/20 02/07/20 02/07/20 16:12 16:12 16:12 WBC 9.8 RBC 4.30 Hgb 13.6 Hct 38.2 MCV 88.9 MCH 31.7 H MCHC 35.7 RDW 13.1 Plt Count 269 MPV 7.4 Absolute Neuts (auto) 6.40 Absolute Lymphs (auto) 2.40 Absolute Monos (auto) 0.80 Absolute Eos (auto) 0.10 Absolute Basos (auto) 0.10 Neutrophils % 65.4 Lymphocytes % 24.6 Monocytes % 8.5 Eosinophils % 0.7 L Basophils % 0.8 PT INR PTT (SP) D-Dimer, Quantitative < 131.0 L Sodium 136 Potassium 3.9 Chloride 97 L Carbon Dioxide 28 Anion Gap 14.9 BUN 20 H Creatinine 0.83 BUN/Creatinine Ratio 24.1 H Random Glucose 240 H Serum Osmolality 282.4 Calcium 9.3 Total Bilirubin 0.6 AST 55 H ALT 72 H Alkaline Phosphatase 83 LD Total Creatine Kinase 26 CK-MB (CK-2) 0.7 CK-MB (CK-2) % Not Reportable Troponin I < 0.02 B-Natriuretic Peptide < 15.0 Serum Total Protein 7.7 Albumin 4.2 Globulin 3.5 Albumin/Globulin Ratio 1.2 02/07/20 02/07/20 16:12 16:12 WBC RBC Hgb Hct MCV MCH MCHC RDW Plt Count MPV Absolute Neuts (auto) Absolute Lymphs (auto) Absolute Monos (auto) Absolute Eos (auto) Absolute Basos (auto) Neutrophils % Lymphocytes % Monocytes % Eosinophils % Basophils % PT 9.9 INR 1.00 PTT (SP) 22.8 D-Dimer, Quantitative Sodium Potassium Chloride Carbon Dioxide Anion Gap BUN Creatinine BUN/Creatinine Ratio Random Glucose Serum Osmolality Calcium Total Bilirubin AST ALT Alkaline Phosphatase LD Total 127 Creatine Kinase CK-MB (CK-2) CK-MB (CK-2) % Troponin I B-Natriuretic Peptide Serum Total Protein Albumin Globulin Albumin/Globulin Ratio Departure - Departure Clinical Impression: Lingular pneumonia Disposition: Discharge to Home or Self Care Condition: Fair Departure Forms: ED Discharge - Pt. Copy, Patient Portal Self Enrollment Diet: diabetic diet Activity: increase activity as tolerated Referrals: Yahir Nuno MD [Primary Care Provider] - 1-2 Weeks Prescriptions: Amoxicillin & Pot Clavulanate [Augmentin Tab] 875 mg PO BID #14 tab predniSONE [Prednisone] 20 mg PO DAILY #5 tab Home Medications: Ambulatory Orders Atorvastatin Calcium 40 mg PO BEDTIME 02/19/19 Insulin Glargine [Basaglar Kwikpen] 12 units SC BEDTIME 02/19/19 Januvia 100 mg PO DAILY 02/19/19 Lisinopril [Prinivil] 10 mg PO BID 02/19/19 Paroxetine HCl [Paroxetine Hydrochloride] 10 mg PO DAILY 02/19/19 Semaglutide [Ozempic] 2 mg SC WKLY 02/19/19 Amoxicillin & Pot Clavulanate [Augmentin Tab] 875 mg PO BID #14 tab 02/07/20 predniSONE [Prednisone] 20 mg PO DAILY #5 tab 02/07/20 Additional Instructions: The patient is a 69-year-old female presented emergency room secondary to worsening shortness of breath today. She is not hypoxic and not in respiratory distress. X-ray shows a small lingular pneumonia. Laboratory work is reassuring. I plan to place the patient on 5 days of low-dose prednisone as well as Augmentin. She can follow-up with her primary care doctor. ER warnings were given for any significant worsening.
[2020-02-07 17:12] VITALS: BP 159/73; O2SAT 92
== END 2020-02-07 17:11 | disposition home or self-care (01) ==
LOC: ER 15:40
DX: U07.1 COVID-19 (principal); J18.1 Lobar pneumonia, unspecified organism; I51.9 Heart disease, unspecified; I10 Essential (primary) hypertension; E11.9 Type 2 diabetes mellitus without complications; K21.9 Gastro-esophageal reflux disease without esophagitis; Z95.5 Presence of coronary angioplasty implant and graft; Z79.4 Long term (current) use of insulin; Z79.899 Other long term (current) drug therapy